=== PATIENT | female | born 1980 | race Caucasian/White ===

== ENCOUNTER 2017-05-23 17:54 | Emergency (ER) | payer MEDICARE, MEDICAID ==
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
[2017-05-23] MEDS ORDERED: Ketorolac 30 MG/ML SDV IM ONE (18:35)
[2017-05-23] MEDS ORDERED: Dexamethasone 4 MG/ML SDV IM ONE (18:35)
[2017-05-23] MEDS ORDERED: Acetaminophen/oxyCODONE 325-5 MG Tab PO ONE (20:15)
[2017-05-23] MEDS ORDERED: Acetaminophen/oxyCODONE 325-5 MG Tab ONE (20:15)
[2017-05-23 20:51] VITALS: BP 117/67
== END 2017-05-23 20:20 | disposition home or self-care (01) ==
LOC: DL.ED 17:54
DX: M25.551 Pain in right hip (principal); F17.210 Nicotine dependence, cigarettes, uncomplicated; H54.61 Unqualified visual loss, right eye, normal vision left eye; Z91.030 Bee allergy status
CPT/HCPCS: 73502; 96372; 99283; J1100; J1885; J2360; A9270-GY

== ENCOUNTER 2017-11-16 00:57 | Emergency (ER) | payer MEDICARE, MEDICAID ==
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
[2017-11-16 01:28] LABS: CHLORIDE,CL 101 mmol/L (101-111); SODIUM,NA 139 mmol/L (135-145)
[2017-11-16 02:21] VITALS: BP 118/67
== END 2017-11-16 02:25 | disposition home or self-care (01) ==
LOC: DL.ED 00:57
DX: R56.9 Unspecified convulsions (principal); F17.210 Nicotine dependence, cigarettes, uncomplicated; Z91.030 Bee allergy status
CPT/HCPCS: 36415; 70450; 71045; 80053; 80185; 80305; 81001; 85025; 99282; 99284

== ENCOUNTER 2020-05-11 00:21 | Emergency (ER) | payer MEDICARE, MEDICAID ==
[2020-05-11 00:28] VITALS: BP 148/117; PULSE 88
[2020-05-11] MEDS ORDERED: HYDROmorphone 1 MG/ML Syringe IVPUSH ONE (00:32)
[2020-05-11] MEDS ORDERED: Ondansetron 4 MG/2 ML SDV IV ONE (00:32)
[2020-05-11] MEDS ORDERED: Sodium Chloride 0.9% 10 ML Syringe FLUSH PRN (00:32)
[2020-05-11 00:59] LABS: ANION GAP 13.8 mEq/L (7-13); CHLORIDE,CL 103 mmol/L (98-107); SODIUM,NA 140 mmol/L (136-145)
[2020-05-11] MEDS ORDERED: diphenhydrAMINE 50 MG/ML SDV IVPUSH ONE ×2 (01:02→02:23)
[2020-05-11] MEDS ORDERED: Sodium Chloride 0.9% 1,000 ML IV ONE ×2 (01:02→02:23)
[2020-05-11] MEDS ORDERED: Butorphanol 2 MG/ML SDV IVPUSH ONE (01:02)
--- NOTE | 2020-05-11 01:02 | CT ---
PROCEDURE INFORMATION: Exam: CT Head Without Contrast Exam date and time: 05/11/2020 12:52 AM Age: 39 years old Clinical indication: Other: Headache; Additional info: Severe headache TECHNIQUE: Imaging protocol: Computed tomography of the head without contrast. Radiation optimization: All CT scans at this facility use at least one of these dose optimization techniques: automated exposure control; mA and/or kV adjustment per patient size (includes targeted exams where dose is matched to clinical indication); or iterative reconstruction. COMPARISON: CT Head wo Cont 11/16/2017 1:08 AM FINDINGS: Brain: Hypoattenuation encephalomalacia is seen within the frontal lobes bilaterally compatible with chronic infarctions, right more prominent than left. There are focal areas of hypoattenuation and encephalomalacia is seen in the occipital lobes bilaterally as well compatible with chronic infarctions. Ventricles: Normal. No ventriculomegaly. Bones/joints: Unremarkable. No acute fracture. Sinuses: Mucosal thickening is seen within the ethmoidal sinuses bilaterally and within the left maxillary sinus. Mastoid air cells: Visualized mastoid air cells are well aerated. Soft tissues: Unremarkable. IMPRESSION: There are no acute intracranial findings. Stable head CT compared with 11/16/2017.
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
[2020-05-11] MEDS ORDERED: Ketorolac 30 MG/ML SDV IVPUSH ONE (02:08)
== END 2020-05-11 03:37 | disposition home or self-care (01) ==
LOC: DL.ED 00:21
DX: G43.909 Migraine, unspecified, not intractable, without status migrainosus (principal); F17.210 Nicotine dependence, cigarettes, uncomplicated; Z91.030 Bee allergy status
CPT/HCPCS: 36415; 70450; 80053; 85025; 96374; 96375; 96376; 99284; J0595; J1170; J1200; J1885; J2405; J7030

== ENCOUNTER 2024-02-25 20:06 | Emergency (ER) | payer MEDICAID, MEDICARE ==
[2024-02-25 20:41] VITALS: BP 120/71; PULSE 93
[2024-02-25 20:48] LABS: BASOPHILS PERCENT AUTO 1.7 % (0.0-1.0); EOSINOPHILS PERCENT AUTO 2.8 % (1.0-3.0); HEMATOCRIT 47.8 % (37.0-47.0); HEMOGLOBIN 16.2 g/dL (12.0-16.0); LYMPHOCYTES PERCENT AUTO 26.5 % (20.5-50.1); MEAN CORPUSCULAR HEMOGLOBIN 30.7 pg (27.0-34.0); MEAN CORPUSCULAR HGB CONC 33.9 g/dL (33.0-35.0); MEAN CORPUSCULAR VOLUME 90.7 fL (80-100); MONOCYTES PERCENT AUTO 12.2 % (2-8); NEUTROPHILS PERCENT AUTO 56.8 % (42.2-75.2); PLATELET COUNT,PLT 342 10^3/uL (150-450); RED BLOOD CELL COUNT 5.27 10^6/uL (4.2-5.4); WHITE BLOOD CELL COUNT,WBC 8.4 10^3/uL (5.0-10.0)
[2024-02-25 20:52] LABS: APPEARANCE,URINE CLEAR (CLEAR); BILIRUBIN,URINE NEGATIVE (NEGATIVE); COLOR,URINE YELLOW (YELLOW); GLUCOSE,URINE NEGATIVE (NEGATIVE); KETONES,URINE NEGATIVE (NEGATIVE); LEUKOCYTE ESTERASE,URINE NEGATIVE (NEGATIVE); NITRITE,URINE NEGATIVE (NEGATIVE); OCCULT BLOOD,URINE SMALL (NEGATIVE); PROTEIN,URINE NEGATIVE (NEGATIVE)
[2024-02-25 21:08] LABS: BACTERIA,URINE FEW /HPF (0-FEW/HPF); EPITHELIAL CELLS,URINE OCCASIONAL /HPF (NOT SEEN); MUCUS,URINE RARE /LPF (NOT SEEN); RBC,URINE 0-5 /HPF (0-5); WBC,URINE 0-5 /HPF (0-5/HPF)
== END 2024-02-25 21:52 | disposition home or self-care (01) ==
LOC: DL.ED 20:06
DX: S30.0XXA Contusion of lower back and pelvis, initial encounter (principal); S30.1XXA Contusion of abdominal wall, initial encounter; S30.23XA Contusion of vagina and vulva, initial encounter; Z91.030 Bee allergy status; Z86.19 Personal history of other infectious and parasitic diseases; Z79.899 Other long term (current) drug therapy; V80.010A Animal-rider injured by fall from or being thrown from horse in noncollision accident, initial encounter
CPT/HCPCS: 36415; 72170; 81001; 85025; 99283; 99284

== ENCOUNTER 2024-07-09 19:29 | Emergency (ER) | payer MEDICARE, MEDICAID | END 2024-07-09 21:36 | disposition left against medical advice (07) | LOC: DL.ED 19:29 | DX: Z53.21 Procedure and treatment not carried out due to patient leaving prior to being seen by health care provider (principal) ==